=== PATIENT | female | born 1985 | race Hispanic/Latino ===

== ENCOUNTER 2022-02-17 19:59 | Emergency (ER) | payer OTHER ==
--- OUTSIDE RECORDS SUMMARY | 2022-02-17 20:04 | XMS REPORT | Continuity of Care Document ---
:1985 Author Organization [facility] t Address [address] [place] [address] Care Team Providers Name Role Phone MAREN BOYD Primary Care Physician Unavailable Maren Boyd Attending Clinician Unavailable VICKY ERICKSON Attending Clinician Unavailable GABE GUAJARDO Attending Clinician Unavailable PATTI LIU Attending Clinician Unavailable ROYAL BENNETT Attending Clinician Unavailable ADRIÁN HURLEY Attending Clinician Unavailable ADRIÁN HURLEY Attending Clinician Unavailable JESSE ARMAS Attending Clinician Unavailable 2, Adc Lab Attending Clinician Unavailable Jesse Armas DO Attending Clinician Nurse, Adc Pob Immunization Attending Clinician Unavailable Vicky Erickson PA-C Attending Clinician KARELY MCCALL Attending Clinician Unavailable AUDRA GILLIAM Attending Clinician Unavailable Lab, Adc Fam Pob I Attending Clinician Unavailable Audra Terry Attending Clinician 1, Adc Lab Attending Clinician Unavailable Doctor Unassigned, [place] Attending Clinician Unavailable Renetta Rojas MD Attending Clinician RENETTA ROJAS Attending Clinician Unavailable Maren Boyd Admitting Clinician Unavailable Payers Payer Name Policy Type Policy Number Effective Date Expiration Date Sandrita DAMON [id number] 2020 00:00:00 ALEX DAMON [id number] 2017 00:00:00 Problems Condition Condition Condition Status Onset Resolution Last Treating Co mments Source Name Details Category Date Date Treatment Clinician Date Obesity Obesity Disease Active Univers (BMI (BMI 7-14 ity of 30-39.9) 30-39.9) 00:00: [place] 00 Medical Branch 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 (AIS) situ [place]AIS[place] of uterine 00 Me dical cervix cervix Branch 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 5-17 [place] of of cervix [place] (JEFF III) (JEFF III) 00 [facility] Branch Status Status Disease Active Univers post LEEP post LEEP 2-12 ity of (loop (loop 00:00: [place] electrosur electrosur 00 Me dical gical gical Branch excision excision procedure) procedure) of cervix of cervix 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 exclude exclude 01/2017- high grade high grade colpo squamous squamous during intraepith intraepith elial elial - JEFF 3. 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 Univers female female 2-14 ity of 00:00: [place] 00 Medical Branch Allergies, Adverse Reactions, Alerts Allergy Allergy Status Severity Reaction(s) Onset Inactive Treating Comm ents Source Name Type Date Date Clinician Tramadol Propensi Active Itching 2016-02 Okay to Univ ers ty to 02-20 receive ity of adverse 00:00: codeine [place] reaction 00 and Medical s hydrocodo Branch ne TRAMADOL DRUG Active Anxiety 2016-02 Univers INGREDI 1-07 ity of 00:00: [place] 00 Medical Branch Social History Social Habit Start Date Stop Date Quantity Comments Source Exposure to Not sure University [facility]-CoV-2 [place] [facility] (event) Branch Alcohol intake 2019-09-17 2019-09-17 Current drinker of Un iversity of 00:00:00 00:00:00 alcohol (finding) [place] [facility] edical Branch History SDOH 2019-09-17 2019-09-17 99 University o f Alcohol Frequency 00:00:00 00:00:00 [place] [facility] edical Branch History SDOH 2019-09-17 2019-09-17 99 University o f Alcohol Std 00:00:00 00:00:00 [place] [facility] Drinks Branch History SDPA 2019-09-17 2019-09-17 99 University o f Alcohol Binge 00:00:00 00:00:00 [facility] al Branch Alcohol Comment 2019-09-17 2019-09-17 occasionally Univers ity of 00:00:00 00:00:00 [facility] Tobacco use and 2012-05-16 2012-05-16 Never used Universit y of exposure 00:00:00 00:00:00 [facility] Sex Ass[birth year] At [birth year] Universit y of 00:00:00 00:00:00 [facility] Smoking Status Start Date Stop Date Source Never smoker [facility] Medications Ordered Filled Start Stop Current Ordering Indication Dosage Frequency Signature Comments Components Source Medication Medication Date Date Medication? Clinician (SIG) Name Name phentermine 2021-0 2021- No 37.5mg Take 37.5 Univers 37.5 mg 1-18 01-18 mg by ity of tablet 09:29: 00:00 mouth [place] 13 :00 daily with Medical breakfast. Branch buPROPion 2019-02 Yes Univers XL 300 mg 2-07 ity of 24 hr 00:00: [place] tablet 00 Medical Branch buPROPion 2019-02 Yes Univers XL 300 mg 2-07 ity of 24 hr 00:00: [place] tablet 00 [facility] buPROPion 2019-02 Yes Univers XL 300 mg 2-07 ity of 24 hr 00:00: [place] tablet 00 Medical Branch levocetiriz Yes 5mg Take 5 mg U nivers ine (XYZAL) 6-24 by mouth ity of 5 mg tablet 11:12: every [place] 01 evening. Medical Branch levocetiriz 2020-0 Yes 5mg Take 5 mg U nivers ine (XYZAL) 6-24 by mouth ity of 5 mg tablet 11:12: every [place] evening. Medical Branch levocetiriz 2020-0 Yes 5mg Take 5 mg U nivers ine (XYZAL) 6-24 by mouth ity of 5 mg tablet 11:12: every [place] evening. Medical Branch montelukast 2017-0 2021- No 10mg Take 10 mg Univers (SINGULAIR) -12 03-03 by mouth ity of 10 mg 00:00: 00:00 daily. [place] tablet 00 :00 [facility] Immunizations Ordered Filled Immunization Date Status Comments [facility] e Immunization Name Name SARS-COV-2 COVID-19 2021-03-06 Completed Unive rsity of MODERNA BOOSTER 00:00:00 [facility] SARS-COV-2 COVID-19 2021-03-06 Completed Unive rsity of MODERNA BOOSTER 00:00:00 [facility] Influenza Virus 2020-11-18 Completed Universit y of Vaccine 00:00:00 [facility] Influenza Virus 2020-11-18 Completed Universit y of Vaccine 00:00:00 [facility] Influenza Virus 2020-11-18 Completed Universit y of Vaccine 00:00:00 [facility] SARS-COV-2 COVID-19 2020-06-12 Completed Unive rsity of MODERNA VACCINE 00:00:00 [facility] SARS-COV-2 COVID-19 2020-06-12 Completed Unive rsity of MODERNA VACCINE 00:00:00 [facility] SARS-COV-2 COVID-19 2020-06-12 Completed Unive rsity of MODERNA VACCINE 00:00:00 [facility] SARS-COV-2 COVID-19 2020-04-23 Completed Unive rsity of MODERNA VACCINE 00:00:00 [facility] SARS-COV-2 COVID-19 2020-04-23 Completed Unive rsity of MODERNA VACCINE 00:00:00 [facility] SARS-COV-2 COVID-19 2020-04-23 Completed Unive rsity of MODERNA VACCINE 00:00:00 [facility] Influenza Virus 2019-12-20 Completed Universit y of Vaccine 00:00:00 [facility] Influenza Virus 2019-12-20 Completed Universit y of Vaccine 00:00:00 [facility] Influenza Virus 2019-12-20 Completed Universit y of Vaccine 00:00:00 [facility] Influenza Virus 2016-12-21 Completed Universit y of Vaccine Quad IM 3+ 00:00:00 [facility] Influenza Virus 2016-12-21 Completed Universit y of Vaccine Quad IM 3+ 00:00:00 [facility] Influenza Virus 2016-12-21 Completed Universit y of Vaccine Quad IM 3+ 00:00:00 [facility] Rho (d) Immune 2012-04-02 Completed University of Globulin 00:00:00 [facility] Rho (d) Immune 2012-04-02 Completed University of Globulin 00:00:00 [facility] Rho (d) Immune 2012-04-02 Completed University of Globulin 00:00:00 [facility] Td 2011-12-01 Completed University of 00:00:00 [facility] Td 2011-12-01 Completed University of 00:00:00 [facility] Td 2011-12-01 Completed University of 00:00:00 [facility] Varicella 2011-08-11 Completed University of (varivax)(chicken 00:00:00 [place] [facility] edical pox) Branch Varicella 2011-08-11 Completed University of (varivax)(chicken 00:00:00 [facility] edical pox) Branch Varicella 2011-08-11 Completed University of (varivax)(chicken 00:00:00 [place] [facility] edical pox) [place] Rubella 2010-12-04 Completed University of 00:00:00 [facility] Rubella 2010-12-04 Completed University of 00:00:00 [facility] Rubella 2010-12-04 Completed University of 00:00:00 [facility] Vital Signs Vital Name Observation Time Observation Value Comments Source Systolic blood 2021-03-03 14:44:00 127 mm[Hg] Univer sity of pressure [facility] Diastolic blood 2021-03-03 14:44:00 82 mm[Hg] Unive rsity of pressure [facility] Heart rate 2021-03-03 14:44:00 62 /min Universi ty of [facility] Body temperature 2021-03-03 14:44:00 36.83 Tati [facility] Respiratory rate 2021-03-03 14:44:00 18 /min Univ [facility] Body height 2021-03-03 14:44:00 157.5 cm [facility] Body weight 2021-03-03 14:44:00 76.658 kg [facility] BMI 2021-03-03 14:44:00 30.91 kg/m2 [facility] Procedures Procedure Date / Time Performed Performing Clinician Sour e SARS-COV-2 COVID-19 2021-03-06 14:46:13 [facility] Un[facility]igned, [facility] V[facility]INE Name [facility] BOOSTER,0.25ML,IM (MODERNA) Encounters Start End Encounter Admission Attending Care Care Encounter Source Date/Time Date/Time Type Type Clinicians Facility Department ID 2020-06-24 Inpatient Jacinta, HCAPM HCAPM [id number] [facility] 07:11:05 Maren 09 [facility] 2022-03-03 2022-03-03 [facility] [id number] [facility] 08:30:00 08:30:00 VICKY edouard [facility] 2022-02-16 2022-02-16 Outpatient TITA GUAJARDO [id number] T[place] 10:15:00 10:15:00 GABE Hensonybol raj 2022-01-29 2022-01-29 Outpatient TITA GUAJARDO [id number] Tita 08:15:00 08:15:00 GABE Seybol raj 2022-01-26 2022-01-26 Outpatient TITA GUAJARDO [id number] Tita 08:00:00 08:00:00 GABE Seybol d 2022-01-18 2022-01-18 Outpatient TITA GUAJARDO [id number] Tita 14:00:00 14:00:00 GABE Seybol d 2022-01-15 2022-01-15 Outpatient TITA GUAJARDO [id number] Tita 09:45:00 09:45:00 GABE Seybol d 2022-01-12 2022-01-12 Outpatient TITA GUAJARDO [id number] Tita 15:30:00 15:30:00 GABE Seybol d 2021-12-31 2021-12-31 Outpatient CASANDRA, TITA GAYTAN [id number] Tita 11:45:00 11:45:00 GABE Seybol d 2021-12-30 2021-12-30 Outpatient CASANDRA, TITA GAYTAN [id number] Tita 08:45:00 08:45:00 GABE Seybol d 2021-12-10 2021-12-10 Outpatient CASANDRA, TITA GAYTAN [id number] Tita 10:30:00 10:30:00 GABE Seybol d 2021-11-04 2021-11-04 Outpatient INJ, TITA GAYTAN [id number] Tita 10:45:00 10:45:00 [place] Seybo ld 2021-11-02 2021-11-02 Outpatient INJ, TITA GAYTAN [id number] Tita 10:00:00 10:00:00 PATTI Seybo brigette 2021-10-29 2021-10-29 Outpatient BENNETT, TITA GAYTAN [id number] Tita 00:00:00 00:00:00 ROYAL Seybol d 2021-04-20 2021-04-20 Outpatient R ADRIÁN HURLEY [facility] [id number] Univers 09:00:00 09:00:00 ADRIÁN HURLEY [facility] 2021-03-06 2021-03-06 Outpatient R [facility] [id number] Univers 09:30:00 09:30:00 [facility] 2021-03-06 2021-03-06 Outpatient R PAWEL [facility] [id number] Univers 09:30:00 09:30:00 JESSE [facility] 2021-03-06 2021-03-06 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 2, Adc Lab [facility] [id number] Univers 09:30:00 09:30:00 Visit Jesse Armas 350.1.13 .10 [facility] [id number] Yulia newton PROFKARLIO [phone] [address] 2021-03-06 2021-03-06 Imm/Inj Nurse, Adc Pob Immunization [facility] [id number] Univers 08:40:00 08:43:41 Visit Jesse Armas 350.1.13 .10 [facility] [id number] [place] [facility] [phone] Hi dical [address] 2021-03-03 2021-03-03 Outpatient Abdirahman ERICKSON [facility] [id number] Univers 15:00:00 15:00:00 VICKY edouard [facility] 2021-03-03 2021-03-03 Outpatient Abdirahman ERICKSON [facility] [id number] Univers 08:30:00 09:31:04 VICKY [facility] 2021-03-03 2021-03-03 Outpatient [facility] [id number] Univers 09:30:00 09:30:00 [facility] 2021-03-03 2021-03-03 Office Dre [facility] [id number] Univers 08:30:00 09:00:00 Visit Vicky SOARES 350.1.13.10 it y of WOM[place]'S [id number] [place] [facility] [phone] [address] 2021-03-03 2021-03-03 Outpatient Abdirahman ERICKSON [facility] [id number] Univers 08:30:00 08:30:00 VICKY [facility] 2021-02-27 2021-02-27 Outpatient Abdirahman ARMAS [facility] [id number] Univers 16:40:00 16:40:00 JESSE edouard [facility] 2021-02-27 2021-02-27 Outpatient Abdirahman ARMAS [facility] [id number] Univers 16:40:00 16:40:00 JESSE [facility] 2020-09-16 2020-09-16 Outpatient Abdirahman ERICKSON [facility] [id number] Univers 10:00:00 10:00:00 VICKY [facility] 2020-06-12 2020-06-12 Outpatient Abdirahman MCCALL [facility] [id number] Univers 07:50:00 07:50:00 KARELY [facility] 2020-05-21 2020-05-21 Outpatient Abdirahman MCCALL [facility] [id number] Univers 09:40:00 09:40:00 KARELY [facility] 2020-04-23 2020-04-23 Outpatient [facility] [id number] Univers 08:00:00 08:00:00 ity [facility] 2020-04-23 2020-04-23 [facility] [id number] Univers 08:00:00 08:00:00 KARELY [facility] 2020-04-12 2020-04-12 Outpatient [facility] [id number] Univers 12:40:00 12:40:00 [facility] 2020-02-13 2020-02-13 Outpatient R TAWANA [facility] [id number] Univers 16:00:00 16:00:00 AUDRA [facility] 2020-02-13 2020-02-13 Laboratory Lab, [facility] [id number] 15:27:34 15:47:34 Only Fam Pob I Health 350.1.13.10 [place] 4.2.7.2.686 Professio [phone] [address] One 2020-02-13 2020-02-13 Laboratory Lab, [facility] Fam Pob I [facility] 1.2. 840.114 [id number] Univers 15:27:34 15:47:34 Only Audra [facility] 350.1.13.10 [facility] [id number] Dick as Professio [phone] Hi dical [address] Office Building One 2020-02-13 2020-02-13 Outpatient R [facility] [id number] Univers 11:40:00 11:40:00 [facility] 2019-09-17 2019-09-[id number] 10:35:58 11:50:13 Visit Vicky Serna 350.1.13.10 [place] 4.2.7.2.686 Professio [id number] [address] 2019-09-17 2019-09-17 Office Dre [facility] [id number] Univers 10:35:58 11:50:13 Visit Vicky Serna 350.1.13.10 i ty [place] 4.2.7.2.686 [place] Professio [phone] Hi dic[address] 2019-09-17 2019-09-17 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 1, Adc Lab [facility] 1.2.840.114 [id number] Univers 11:29:36 11:44:36 Visit Vicky Erickson 350.1.13.10 [place] 4.2.7.2.686 [place] [phone] [address] 2019-09-17 2019-09-17 Outpatient R DRE [facility] [id number] Univers 10:30:00 10:30:00 VICKY ity [facility] 2019-09-17 2019-09-17 Orders Doctor IZAIAH 1.2.840.114 [id number] Univers 00:00:00 00:00:00 Only Unassigned, GARCIA 350.1.13.10 ity of [place] [facility] 4.2.7.2.686 Dick as [id number] [address] 2019-08-08 2019-08-08 Office Renetta Rojas [facility] [id number] Univers 10:50:15 11:37:48 Visit Rickie Serna 350.1.13.10 i ty [place] 4[place]2.7.2.686 [place] Professio [phone] [address] 2019-08-08 2019-08-08 Outpatient R RENETTA ROJAS [facility] [id number] Univers 10:45:00 10:45:[address] [facility] 2019-08-01 2019-08-01 Telephone Dre [facility] 1.2.840.114 [id number] Univers 00:00:00 00:00:00 Vicky Serna 350.1.13.10 i ty [place] 4.2.7.2.686 [place] Professio [phone] Hi dical nal [address] Results Test Description Test Time Test Comments Results Result [facility] e Comments - US ABDOMEN LTD 2020-06-27 09:50:00 [facility] : 1985 Sex: F Name: DENVER TORRES [facility] : 1985 Age/S: 34 / F [id number] [place] Unit #: [id number] Loc: [place] [address] Phys: Maren Boyd DO Acct: [id number] Dis Date: Status: REG CLI PHONE #: [phone] Exam Date: 06/27/202010 FAX #: Reason: RT UP QUAD PAIN EXAMS: CPT: [id number] ABDOMEN LTD [id number] EXAM: - US ABDOMEN LTD HISTORY: RT UP QUAD PAIN S17 COMPARISON: None available time of interpretation. TECHNIQUE: Grayscale B-mode and color Doppler sonographic images of the right upper quadrant were obtained. FINDINGS: Liver: Right hepatic lobe length: 16 cm Parenchyma/Contour: Unremarkable. No focal hepatic lesion is seen sonographically. Main portal vein: Patent with normal (hepatopetal) flow. Biliary ducts: No intrahepatic biliary ductal dilation. Common duct measures 4 mm in diameter at the denise hepatis. Gallbladder: Unremarkable. No cholelithiasis. No gallbladder wall thickening or pericholecystic fluid. Pancreas: The pancreas is not well seen mostly obscured by bowel gas. Right Kidney: The right kidney has a normal sonographic appearance. No solid mass lesion is seen. No hydronephrosis is present. Renal cortical thickness and echogenicity is within normal limits. Length: 9.8 cm Other: No ascites in the visualized abdomen. IMPRESSION: 1. No sonographic evidence of acute process in the right upper quadrant. 2. No cholelithiasis, sonographic evidence of acute cholecystitis or biliary dilatation/obstruction . at 0950 Reported and signed by: Antonia Graham M.D. PAGE 1 Signed Report (CONTINUED) Name: [place] : 1985 Age/S: 34 / F [address] [place] Unit #: [id number] Loc: [place] [address] Phys: Maren Boyd DO Acct: [id number] Dis Date: Status: REG CLI PHONE #: [phone] Exam Date: 06/27/2020 0910 FAX #: Reason: RT UP QUAD PAIN EXAMS: CPT: [id number] US ABDOMEN LTD [id number] (Continued) CC: Maren Boyd DO Technologist: [facility] Bel[facility]an [facility] Date/Time: 06/27/2020 (0950) [email or web address] PAGE 2 Signed Report Name: DENVER TORRES [place] : 1985 Age/S: 34 / F [id number] [place] Unit #: [id number] Loc: [place] [address] Phys: Maren Boyd DO Acct: [id number] Dis Date: Status: REG CLI PHONE #: [phone] Exam Date: 06/27/2020 0910 FAX #: Reason: RT UP QUAD PAIN EXAMS: CPT: [id number] US ABDOMEN LTD [id number] (Continued) Orig Print D/T: S: 06/27/2020 (0953) Probe: PAGE 3 Signed Report
[2022-02-17 20:58] LABS: Urine Blood 1+ (Negative); Urine Glucose Negative (Negative); Urine Protein Negative (Negative); Urine Specific Gravity >=1.030 (1.005-1.030); Urine pH 5.5 (5.0-7.0)
[2022-02-17 21:03] LABS: Absolute Lymphocytes (CBC) 2.7 K/uL (0.7-4.9); Hematocrit 42.6 % (36.0-45.0); Lymphocytes % 25.5 % (15.3-44.8); MCV 88.7 fL (80-100); MPV 8.8 fL (7.6-11.3)
[2022-02-17 21:11] LABS: Urine Specific Gravity/Preg >1.030 (1.005-1.030)
[2022-02-17 21:14] LABS: Urine Bacteria <20 /HPF (<20); Urine Crystals Unidentified Few /HPF (None Seen); Urine Mucus Slight /HPF (None Seen); Urine RBC <5 /HPF (None Seen)
[2022-02-17 21:23] LABS: Albumin 3.9 g/dL (3.4-5.0); Bilirubin Total 0.3 mg/dL (0.2-1.0); Protein, Total 7.9 g/dL (6.4-8.2)
[2022-02-17 21:24] LABS: Potassium 3.6 mmol/L (3.5-5.1)
--- NOTE | 2022-02-17 21:39 | RAD REPORT ---
EXAM DESCRIPTION: US - Abdomen Exam Limited - 02/17/2022 9:32 pm CLINICAL HISTORY: Abdominal pain. COMPARISON: None. FINDINGS: The gallbladder wall is not thickened. A gallstone is not seen. The biliary tree is normal caliber. IMPRESSION: Unremarkable gallbladder ultrasound.
[2022-02-17] MEDS ORDERED: ONDANSETRON 4 MG/2 ML VIAL ONE (21:42)
[2022-02-17] MEDS ORDERED: NA CHLORIDE 0.9% 1,000 ML ONE (21:42)
[2022-02-17] MEDS ORDERED: KETOROLAC 30 MG/ML INJ ONE (21:43)
--- NOTE | 2022-02-17 22:05 | ER ---
Nurse's Notes [facility] Name: Unique Do Age: 36 yrs Sex: Female : 1985 Arrival Date: 02/17/2022 Time: 20:04 Bed 20 Private MD: Diagnosis: Upper abdominal pain, unspecified Presentation: 02/17 20:12 Chief complaint: Patient states: abdominal pain began today at 4pm. Coronavirus screen: kl Vaccine status: Patient reports receiving the 2nd dose of the covid vaccine. Ebola Screen: Patient negative for fever greater than or equal to 101.5 degrees Fahrenheit, and additional compatible Ebola Virus Disease symptoms. Initial Sepsis Screen: Does the patient meet any 2 criteria? No. Patient's initial sepsis screen is negative. Does the patient have a suspected source of infection? No. Patient's initial sepsis screen is negative. Risk Assessment: Do you want to hurt yourself or someone else? Patient reports no desire to harm self or others. 20:12 Method Of Arrival: Ambulatory 20:12 Acuity: CRISTIANO 3 20:41 Onset of symptoms was February 17, 2022 at 16:00. jj7 Triage Assessment: 20:14 General: Appears distressed, uncomfortable, Behavior is calm, cooperative. Pain: Complains of pain in epigastric area, right upper quadrant and left upper quadrant. GI: Reports anorexia, nausea, vomiting. Historical: - Allergies: 20:13 Tramadol HCl; kl - Home Meds: 20:13 Protonix Oral [Active]; Contrave oral [Active]; kl - PMHx: 20:15 gerd; kl - PSHx: 20:13 Appendectomy; kl 20:16 HYSTERECTOMY; kl - Immunization history:: Adult Immunizations up to date. - Social history:: Smoking status: Patient denies any tobacco usage or history of. Screenin:43 [facility] ED Fall Risk Assessment (Adult) History of falling in the last 3 months, jj7 including since admission No falls in past 3 months (0 pts) Confusion or Disorientation No (0 pts) Intoxicated or Sedated No (0 pts) Impaired Gait No (0 pts) Mobility Assist Device Used No (0 pt) Altered Elimination No (0 pt) Score/Fall Risk Level 0 - 2 = Low Risk. Abuse screen: Denies threats or abuse. Nutritional screening: No deficits noted. Tuberculosis screening: No symptoms or risk factors identified. Assessment: 20:43 General: Appears in no apparent distress. comfortable, Behavior is calm, cooperative, jj7 appropriate for age. GI: Abd is soft Abdomen is tender to palpation in right upper quadrant Reports upper abdominal pain, nausea. Vital Signs: 20:12 BP 140 / 102; Pulse 79; Resp 18; Temp 9.6(TE); Pulse Ox 100% on R/A; Weight 77.11 kg; Height 5 ft. 2 in. (157.48 cm); Pain 8/10; 21:11 Temp 99.6(TE); kl 22:00 BP 106 / 66; Pulse 56; Resp 18; Pulse Ox 100% ; jj7 22:34 BP 109 / 66; Pulse 59; Resp 18; Pulse Ox 100% ; Pain 1/10; jj7 20:12 Body Mass Index 31.09 (77.11 kg, 157.48 cm) ED Course: 20:04 Patient arrived in ED. jj6 20:13 Triage completed. 20:41 Sapna Garcia FNP-C is PHCP. kb 20:41 Vamshi Raza MD is Attending Physician. kb 20:41 Ryanne Howe RN is Primary Nurse. jj7 20:43 Patient has correct armband on for positive identification. Placed in gown. Bed in low jj7 position. Call light in reach. 20:43 Patient placed in an exam room, in a wheelchair. jj7 20:43 No provider procedures requiring assistance completed. Inserted saline lock: 20 gauge jj7 in right antecubital area, using aseptic technique. Blood collected. 20:52 CBC with Diff Sent. jj7 20:52 CMP Sent. jj7 20:52 Lipase Sent. jj7 20:52 Urine Microscopic Only Sent. jj7 21:34 US Abdomen Limited In Process Unspecified. EDMS 22:47 IV discontinued, intact, bleeding controlled, No redness/swelling at site. Pressure jj7 dressing applied. Administered Medications: 21:48 Drug: NS 0.9% 1000 ml Route: IV; Rate: 1000 ml; Site: right antecubital; jj7 22:35 Follow up: IV Status: Completed infusion jj7 21:49 Drug: Zofran (Ondansetron) 4 mg Route: IVP; Site: right antecubital; jj7 22:35 Follow up: Response: Nausea is decreased jj7 21:49 Drug: Ketorolac 15 mg Route: IVP; Site: right antecubital; jj7 22:36 Follow up: Response: Pain is decreased jj7 22:32 Drug: Pepcid (famotidine) 20 mg Route: IVP; Site: right antecubital; jj7 22:36 Follow up: Response: No adverse reaction jj7 Medication: 20:43 VIS not applicable for this client. jj7 Outcome: 22:04 Discharge ordered by MD. fontenot 22:47 Discharged to home ambulatory, with family. jj7 22:47 Condition: improved 22:47 Discharge instructions given to patient, Instructed on discharge instructions, medication usage, Demonstrated understanding of instructions, medications, Prescriptions given X 1. 22:48 Patient left the ED. jj7 Signatures: Dispatcher [employer] EDWY Sapna Garcia, CONSTRUCTION PROJECT ADMINISTRATOR-C CONSTRUCTION PROJECT ADMINISTRATOR-CkAntonia Domingo, RN RN Yvonne Pierson jj6 Raynne Howe RN RN jj7 Corrections: (The following items were deleted from the chart) 20:14 20:13 Allergies: No Known Allergies; rosario ponce 22:09 22:00 BP 119 / 78; Pulse 52bpm; Resp 18bpm; Pulse Ox 100%; Pain 4/10; jj7 jj7
--- NOTE | 2022-02-17 22:05 | EDPHYS ---
Physician Documentation [facility] Name: Unique Do Age: 36 yrs Sex: Female : 1985 Arrival Date: 02/17/2022 Time: 20:04 Bed 20 Private MD: ED Physician Vamshi Raza HPI: 02/17 22:31 This 36 yrs old Female presents to ER via Ambulatory with complaints of kb Abdominal Swelling, Abdominal Pain, Nausea/Vomiting. 22:31 The patient presents with abdominal pain in the upper abdomen. Onset: The kb symptoms/episode began/occurred 4 day(s) ago, and became persistent today. The symptoms do not radiate. Associated signs and symptoms: Pertinent positives: nausea and vomiting. The symptoms are described as constant. Modifying factors: The symptoms are alleviated by nothing, the symptoms are aggravated by nothing. Severity of pain: At its worst the pain was moderate in the emergency department the pain is unchanged. The patient has experienced similar episodes in the past. The patient has not recently seen a physician. Pt reports intermittent abd pain that started 4 days ago, but became persistent at 1600 today. Reports vomited x1. Denies fever, diarrhea. Has had this pain a few times in the past. Historical: - Allergies: 20:13 Tramadol HCl; kl - Home Meds: 20:13 Protonix Oral [Active]; Contrave oral [Active]; kl - PMHx: 20:15 gerd; kl - PSHx: 20:13 Appendectomy; kl 20:16 HYSTERECTOMY; kl - Immunization history:: Adult Immunizations up to date. - Social history:: Smoking status: Patient denies any tobacco usage or history of. ROS: 22:30 Constitutional: Negative for fever, chills, and weight loss. kb 22:30 Abdomen/GI: Positive for abdominal pain, nausea and vomiting. 22:30 All other systems are negative. Exam: 22:30 Constitutional: This is a well developed, well nourished patient who is awake, alert, kb and in no acute distress. Head/Face: Normocephalic, atraumatic. ENT: Moist Mucous membranes Cardiovascular: Regular rate and rhythm with a normal S1 and S2. No gallops, murmurs, or rubs. No pulse deficits. Respiratory: Respirations even and unlabored. No increased work of breathing. Talking in full sentences Skin: Warm, dry with normal turgor. Normal color. MS/ Extremity: Pulses equal, no cyanosis. Neurovascular intact. Full, normal range of motion. Neuro: Awake and alert, GCS 15, oriented to person, place, time, and situation. Moves all extremities. Normal gait. Psych: Awake, alert, with orientation to person, place and time. Behavior, mood, and affect are within normal limits. 22:30 Abdomen/GI: Inspection: abdomen appears normal, Bowel sounds: normal, Palpation: soft, in all quadrants, mild abdominal tenderness, in the epigastric area and left upper quadrant. Vital Signs: 20:12 BP 140 / 102; Pulse 79; Resp 18; Temp 9.6(TE); Pulse Ox 100% on R/A; Weight 77.11 kg; kl Height 5 ft. 2 in. (157.48 cm); Pain 8/10; 21:11 Temp 99.6(TE); kl 22:00 BP 106 / 66; Pulse 56; Resp 18; Pulse Ox 100% ; jj7 22:34 BP 109 / 66; Pulse 59; Resp 18; Pulse Ox 100% ; Pain 1/10; jj7 20:12 Body Mass Index 31.09 (77.11 kg, 157.48 cm) kl MDM: 20:41 Patient medically screened. kb 22:28 Data reviewed: vital signs, nurses notes. Data interpreted: Pulse oximetry: on room air kb is 100 %. Interpretation: normal. 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 ED course: I considered the following discharge prescriptions or medication management in the emergency department: considered prescription protonix, but pt will take OTC GERD medication; Diagnostic test considered but not performed: CT considered, but labs wnl, pain is intermittent and to upper abd. CT not indicated at this time.. 22:39 Differential diagnosis: cholecystitis, Cholelithiasis, gastritis, gastroesophageal kb reflux disease. 02/17 20:41 Order name: CBC with Diff; Complete Time: 21:27 kb 02/17 20:41 Order name: CMP; Complete Time: 21:27 kb 02/17 20:41 Order name: Lipase; Complete Time: 21:27 kb 02/17 20:41 Order name: Urine Microscopic Only; Complete Time: 21:27 kb 02/17 20:59 Order name: Urine Dipstick-Ancillary; Complete Time: 20:59 EDMS 02/17 21:03 Order name: Urine --Ancillary (enter results); Complete Time: 21:27 wm 02/17 20:41 Order name: IV Saline Lock; Complete Time: 20:52 kb 02/17 20:41 Order name: Labs collected and sent; Complete Time: 20:52 kb 02/17 20:41 Order name: Urine Dipstick-Ancillary (obtain specimen); Complete Time: 21:00 kb 02/17 21:05 Order name: US Abdomen Limited; Complete Time: 21:46 kb 02/17 20:41 Order name: Urine Test (obtain specimen); Complete Time: 21:00 kb Administered Medications: 21:48 Drug: NS 0.9% 1000 ml Route: IV; Rate: 1000 ml; Site: right antecubital; jj7 22:35 Follow up: IV Status: Completed infusion jj7 21:49 Drug: Zofran (Ondansetron) 4 mg Route: IVP; Site: right antecubital; jj7 22:35 Follow up: Response: Nausea is decreased jj7 21:49 Drug: Ketorolac 15 mg Route: IVP; Site: right antecubital; jj7 22:36 Follow up: Response: Pain is decreased jj7 22:32 Drug: Pepcid (famotidine) 20 mg Route: IVP; Site: right antecubital; jj7 22:36 Follow up: Response: No adverse reaction jj7 Disposition Summary: 02/17/22 22:04 Discharge Ordered Location: Home kb Condition: Stable kb Diagnosis - Upper abdominal pain, unspecified kb Followup: kb - With: Emergency Department - When: As needed - Reason: Worsening of condition Followup: kb - With: Private Physician - When: 2 - 3 days - Reason: Recheck today's complaints, Continuance of care, Re-evaluation by your physician Discharge Instructions: - Discharge Summary Sheet kb - Abdominal Pain, Adult, Mred-ic-Ajoo kb Forms: - Medication Reconciliation Form kb - Thank You Letter kb - Antibiotic Education kb - Prescription Opioid Use kb - Work release form jj7 Prescriptions: - dicyclomine 20 mg Oral Tablet - take 1 tablet by ORAL route 4 times per day As needed; 16 tablet; Refills: 0, kb Product Selection Permitted Signatures: Dispatcher [employer] EDSapna Saba, Antonia Zaragoza RN RN kl Johnson, Juwairiyah, RN RN jj7 Corrections: (The following items were deleted from the chart) 20:14 20:13 Allergies: No Known Allergies; rosario ponce
[2022-02-17] MEDS ORDERED: FAMOTIDINE 20 MG/2 ML VIAL IV ONE (22:31)
[2022-02-17 23:02] VITALS: O2SAT 100
[2022-02-17 23:03] VITALS: TEMP 99.6
[2022-02-17 23:05] VITALS: BP 109/66
== END 2022-02-17 22:48 | disposition home or self-care (01) ==
LOC: ER 19:59
DX: R10.11 Right upper quadrant pain (principal); R10.12 Left upper quadrant pain; Z88.5 Allergy status to narcotic agent
CPT/HCPCS: 96361; 85025; 36415; 81025; 83690; 80053; 76705; 96375; 96374; 99284; J7030; J2405; 81003; 81015

== ENCOUNTER 2022-08-19 20:20 | Emergency (ER) | payer OTHER ==
--- OUTSIDE RECORDS SUMMARY | 2022-08-19 20:29 | XMS REPORT | Continuity of Care Document ---
:1985 Author Organization [facility] t Address [address] [facility] [address] [place] [address] Care Team Providers Name Role Phone MAREN BOYD Primary Care Physician Unavailable Maren Boyd Attending Clinician Unavailable VICKY ERICKSON Attending Clinician Unavailable RENETTA ROJAS Attending Clinician Unavailable KALI MCCRARY Attending Clinician Unavailable 2, [facility] Attending Clinician Unavailable Vicky Erickson PA-C Attending Clinician Doctor Unassigned, [place] Attending Clinician Unavailable GABE GUAJARDO Attending Clinician Unavailable PATTI LIU Attending Clinician Unavailable ROYAL BENNETT Attending Clinician Unavailable ADRIÁN HURLEY Attending Clinician Unavailable ADRIÁN HURLEY Attending Clinician Unavailable JESSE ARMAS Attending Clinician Unavailable Jesse Armas DO Attending Clinician Nurse, Ad[facility] Pob Immunization Attending Clinician Unavailable KARELY MCCALL Attending Clinician Unavailable AUDRA GILLIAM Attending Clinician Unavailable Lab, Ad[facility] Fam Pob I Attending Clinician Unavailable Audra Terry Attending Clinician 1, [facility] Attending Clinician Unavailable Renetta Rojas MD Attending Clinician Maren Boyd Admitting Clinician Unavailable Payers Payer Name Policy Type Policy Number Effective Date Expiration Date S ource Problems Condition Condition Condition Status Onset Resolution [...] [place] (JEFF III) (JEFF III) 00 Medi sumaya Branch Status Status Disease Active Univers post LEEP post LEEP 2-12 ity of (loop (loop 00:00: [place] electrosur electrosur 00 Me dical gical gical Branch excision excision procedure) procedure) of cervix of cervix Status Status Disease Active Univers post LEEP [...] lesion Incomplet (ASC-H) (ASC-H) e ab with D&C3// 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 [...] hydrocodo Branch ne TRAMADOL DRUG Active Anxiety 2016- Univers INGREDI 02-20 ity of 00:00: [place] [address] Medical Branch Social History Social Habit Start Date Stop Date Quantity Comments Source Exposure to 2022-02-22 2022-03-04 [facility]59[facility]00 [place] [facility] (event) Branch Alcohol intake 2022-03-04 2022-03-04 Current drinker of Un iversity of 00:00:00 00:00:00 alcohol (finding) [facility] [place] [facility] edical Branch Tobacco use and 2022-03-04 2022-03-04 Smokeless tobacco Un iversity of exposure 00:00:00 00:00:00 non-user [place] [facility] History SDMO 2019-09-17 2019-09-17 99 University o f Alcohol Frequency 00:00:00 00:00:00 [facility] [place] [facility] edical Branch History SDOH 2019-09-17 2019-09-17 99 University o f Alcohol Std 00:00:00 00:00:00 [place] [facility] Drinks [facility] History SDMO 2019-09-17 2019-09-17 99 University o f Alcohol Binge 00:00:00 00:00:00 [place] [facility] Alcohol Comment 2019-09-17 2019-09-17 occasionally Univers ity of 00:00:00 00:00:00 [facility] Sex Ass[birth year] At [birth year] Universit y of 00:00:00 00:00:00 [facility] Smoking Status Start Date Stop Date Source Never smoked tobacco [facility] Medications Ordered Filled Start Stop Current Ordering Indication Dosage Frequency Signature Comments Components Source Medication Medication Date Date Medication? Clinician (SIG) Name Name pantoprazol 2021-02 Yes Univer s e 40 mg EC 2-01 ity of tablet 00:00: [place] [facility] pantoprazol 2021-02 Yes Univer s e 40 mg EC 2-01 ity of tablet 00:00: [place] [facility] pantoprazol 2021-02 Yes Univer s e 40 mg EC 2-01 ity of tablet 00:00: [place] [address] [facility] phentermine 0 2021- No 37.5mg Take 37.5 Univers 37.5 mg 1-18 01-18 mg by ity of tablet 09:29: 00:00 mouth [place] 13 :00 daily with Medical breakfast. Branch buPROPion 2019- Yes Univers XL 300 mg 2-07 ity of 24 hr 00:00: [place] tablet 00 Medical Branch buPROPion 2019- Yes Univers XL 300 mg 2-07 ity of 24 hr 00:00: [place] tablet 00 Medical Branch buPROPion 2019- Yes Univers XL 300 mg 2-07 ity of 24 hr 00:00: [place] tablet 00 Medical Branch buPROPion 2019- Yes Univers XL 300 mg 2-07 ity of 24 hr 00:00: [place] tablet 00 Medical Branch buPROPion 2019- Yes Univers XL 300 mg 2-07 ity of 24 hr 00:00: [place] tablet 00 Medical Branch buPROPion 2019- Yes Univers XL 300 mg 2-07 ity of 24 hr 00:00: [place] tablet 00 Medical Branch buPROPion 2019- Yes Univers XL 300 mg 2-07 ity of 24 hr 00:00: [place] tablet 00 Medical Branch levocetiriz 2020-0 Yes 5mg Take 5 mg U nivers ine (XYZAL) 6-24 by mouth ity of 5 mg tablet 11:12: every [place] evening. Medical Branch levocetiriz 2020-0 Yes 5mg Take 5 mg U nivers ine (XYZAL) 6-24 by mouth ity of 5 mg tablet 11:12: every [place] evening. Medical Branch levocetiriz 2020-0 Yes 5mg Take 5 mg U nivers ine (XYZAL) 6-24 by mouth ity of 5 mg tablet 11:12: every [place] evening. Medical Branch levocetiriz 2020-0 Yes 5mg Take 5 mg U nivers ine (XYZAL) 6-24 by mouth ity of 5 mg tablet 11:12: every [place] evening. Medical Branch levocetiriz 2020-0 Yes 5mg Take 5 mg U nivers ine (XYZAL) 6-24 by mouth ity of 5 mg tablet 11:12: every [place] evening. Medical Branch levocetiriz 2020-0 Yes 5mg Take 5 mg U nivers ine (XYZAL) 6-24 by mouth ity of 5 mg tablet 11:12: every [place] evening. Medical Branch levocetiriz 2020-0 Yes 5mg Take 5 mg U nivers ine (XYZAL) 6-24 by mouth ity of 5 mg tablet 11:12: every [place] 01 evening. Medical Branch montelukast 2018-0 2021- 10mg Take 10 mg Univers (SINGULAIR) [id number] by mouth ity of 10 mg 00:00: 00:00 daily. [place] tablet 00 :00 [facility] Immunizations Ordered Filled Immunization Date Status Comments [facility] e Immunization Name Name Influenza Virus 2021-11-02 Completed Universit y of Vaccine Quad IM 00:00:00 [place] [facility] ical Multi-dose 6+ MO Branch PPD (TB) 2021-11-02 Completed University 00:00:00 [facility] Influenza Virus 2021-11-02 Completed Universit y of Vaccine Quad IM 00:00:00 [place] [facility] ical Multi-dose 6+ MO Branch PPD (TB) 2021-11-02 Completed University 00:00:00 [facility] Influenza Virus 2021-11-02 Completed Universit y of Vaccine Quad IM 00:00:00 [place] [facility] ical Multi-dose 6+ MO Branch PPD (TB) 2021-11-02 Completed University 00:00:00 [facility] Influenza Virus 2021-11-02 Completed Universit y of Vaccine Quad IM 00:00:00 [place] [facility] ical Multi-dose 6+ MO Branch PPD (TB) 2021-11-02 Completed University 00:00:00 [facility] SARS-COV-2 COVID-19 2021-03-06 Completed Unive rsity of MODERNA BOOSTER 00:00:00 [facility] VACCINE Branch SARS-COV-2 COVID-19 2021-03-06 Completed Unive rsity of MODERNA BOOSTER 00:00:00 [facility] VACCINE Branch SARS-COV-2 COVID-19 2021-03-06 Completed Unive rsity of MODERNA 0.25ML 00:00:00 [place] Medi sumaya BOOSTER VACCINE Branch SARS-COV-2 COVID-19 2021-03-06 Completed Unive rsity of MODERNA 0.25ML 00:00:00 [place] Medi sumaya BOOSTER VACCINE Branch SARS-COV-2 COVID-19 2021-03-06 Completed Unive rsity of MODERNA 0.25ML 00:00:00 [place] Med[facility] sumaya BOOSTER VACCINE Branch SARS-COV-2 COVID-19 2021-03-06 Completed Unive rsity of MODERNA 0.25ML 00:00:00 [facility] VACCINE Branch Influenza Virus 2020-11-18 Completed Universit y of Vaccine 00:00:00 [facility] Influenza Virus 2020-11-18 Completed Universit y of Vaccine 00:00:00 [facility] Influenza Virus 2020-11-18 Completed Universit y of Vaccine 00:00:00 [facility] Influenza Virus 2020-11-18 Completed Universit y of Vaccine 00:00:00 [facility] Influenza Virus 2020-11-18 Completed Universit y of Vaccine 00:00:00 [facility] Influenza Virus 2020-11-18 Completed Universit y of Vaccine 00:00:00 [facility] Influenza Virus 2020-11-18 Completed Universit y of Vaccine 00:00:00 [facility] Lab Evidence Of 2020-08-28 Completed Universit y of Immunity - 00:00:00 [facility] Varicella Branch Lab Evidence Of 2020-08-28 Completed Universit y of Immunity - 00:00:00 [facility] Hepatitis B Branch Lab Evidence Of 2020-08-28 Completed Universit y of Immunity - 00:00:00 [facility] Varicella Branch Lab Evidence Of 2020-08-28 Completed Universit y of Immunity - 00:00:00 [facility] Hepatitis B Branch Lab Evidence Of 2020-08-28 Completed Universit y of Immunity - 00:00:00 [facility] Varicella Branch Lab Evidence Of 2020-08-28 Completed Universit y of Immunity - 00:00:00 [facility] Hepatitis B Branch Lab Evidence Of 2020-08-28 Completed Universit y of Immunity - 00:00:00 [facility] Varicella Branch Lab Evidence Of 2020-08-28 Completed Universit y of Immunity - 00:00:00 [facility] B Branch SARS-COV-2 COVID-19 2020-06-12 Completed Unive rsity of MODERNA VACCINE 00:00:00 [facility] SARS-COV-2 COVID-19 2020-06-12 Completed Unive rsity of MODERNA VACCINE 00:00:00 [facility] SARS-COV-2 COVID-19 2020-06-12 Completed Unive rsity of MODERNA VACCINE 00:00:00 [facility] SARS-COV-2 COVID-19 2020-06-12 Completed Unive rsity of MODERNA 12+ YRS 00:00:00 [place] [facility] ical VACCINE Branch SARS-COV-2 COVID-19 2020-06-12 Completed Unive rsity of MODERNA 12+ YRS 00:00:00 [place] [facility] ical VACCINE Branch SARS-COV-2 COVID-19 2020-06-12 Completed Unive rsity of MODERNA 12+ YRS 00:00:00 [facility] ical VACCINE Branch SARS-COV-2 COVID-19 2020-06-12 Completed Unive rsity of MODERNA 12+ YRS 00:00:00 [place] [facility] ical VACCINE Branch SARS-COV-2 COVID-19 2020-04-23 Completed Unive rsity of MODERNA VACCINE 00:00:00 [facility] ical Branch SARS-COV-2 COVID-19 2020-04-23 Completed Unive rsity of MODERNA VACCINE 00:00:00 [facility] ical Branch SARS-COV-2 COVID-19 2020-04-23 Completed Unive rsity of MODERNA VACCINE 00:00:00 [facility] ical Branch SARS-COV-2 COVID-19 2020-04-23 Completed Unive rsity of MODERNA 12+ YRS 00:00:00 [facility] ical VACCINE Branch SARS-COV-2 COVID-19 2020-04-23 Completed Unive rsity of MODERNA 12+ YRS 00:00:00 [facility] ical VACCINE Branch SARS-COV-2 COVID-19 2020-04-23 Completed Unive rsity of MODERNA 12+ YRS 00:00:00 [facility] ical VACCINE Branch SARS-COV-2 COVID-19 2020-04-23 Completed Unive rsity of MODERNA 12+ YRS 00:00:00 [facility] VACCINE Branch Influenza Virus 2019-12-20 Completed Universit y of Vaccine 00:00:00 [facility] Influenza Virus 2019-12-20 Completed Universit y of Vaccine 00:00:00 [facility] Influenza Virus 2019-12-20 Completed Universit y of Vaccine 00:00:00 [facility] Influenza Virus 2019-12-20 Completed Universit y of Vaccine 00:00:00 [facility] Influenza Virus 2019-12-20 Completed Universit y of Vaccine 00:00:00 [facility] Influenza Virus 2019-12-20 Completed Universit y of Vaccine 00:00:00 [facility] Influenza Virus 2019-12-20 Completed Universit y of Vaccine 00:00:00 [facility] HEP B, Adult Dosage 2018-12-28 Completed Unive rsity of 00:00:00 [facility] HEP B, Adult Dosage 2018-12-28 Completed Unive rsity of 00:00:00 [facility] HEP B, Adult Dosage 2018-12-28 Completed Unive rsity of 00:00:00 [facility] Branch HEP B, Adult Dosage 2018-12-28 Completed Unive rsity of 00:00:00 [facility] Branch HEP B, Adult Dosage 2018-07-21 Completed Unive rsity of 00:00:00 [facility] HEP B, Adult Dosage 2018-07-21 Completed Unive rsity of 00:00:00 [facility] HEP B, Adult Dosage 2018-07-21 Completed Unive rsity of 00:00:00 [facility] HEP B, Adult Dosage 2018-07-21 Completed Unive rsity of 00:00:00 [facility] HEP B, Adult Dosage 2018-06-20 Completed Unive rsity of 00:00:00 [facility] Branch HEP B, Adult Dosage 2018-06-20 Completed Unive rsity of 00:00:00 [facility] HEP B, Adult Dosage 2018-06-20 Completed Unive rsity of 00:00:00 [facility] HEP B, Adult Dosage 2018-06-20 Completed Unive rsity of 00:00:00 [facility] Influenza Virus 2016-12-21 Completed Universit y of Vaccine Quad IM 3+ 00:00:00 [facility] Influenza Virus 2016-12-21 Completed Universit y of Vaccine Quad IM 3+ 00:00:00 [facility] Influenza Virus 2016-12-21 Completed Universit y of Vaccine Quad IM 3+ 00:00:00 [facility] Influenza Virus 2016-12-21 Completed Universit y of Vaccine Quad IM 3+ 00:00:00 [facility] Influenza Virus 2016-12-21 Completed Universit y of Vaccine Quad IM 3+ 00:00:00 [facility] Influenza Virus 2016-12-21 Completed Universit y of Vaccine Quad IM 3+ 00:00:00 [facility] Influenza Virus 2016-12-21 Completed Universit y of Vaccine Quad IM 3+ 00:00:00 [facility] Rho (d) Immune 2012-04-02 Completed University of Globulin 00:00:00 [facility] Rho (d) Immune 2012-04-02 Completed University of Globulin 00:00:00 [facility] Rho (d) Immune 2012-04-02 Completed University of Globulin 00:00:00 [facility] Rho (d) Immune 2012-04-02 Completed University of Globulin 00:00:00 [facility] Rho (d) Immune 2012-04-02 Completed University of Globulin 00:00:00 [facility] Rho (d) Immune 2012-04-02 Completed University of Globulin 00:00:00 [facility] Rho (d) Immune 2012-04-02 Completed University of Globulin 00:00:00 [facility] Td 2011-12-01 Completed University of 00:00:00 [facility] Td 2011-12-01 Completed University of 00:00:00 [facility] Td 2011-12-01 Completed University of 00:00:00 [facility] TD, NOS 2011-12-01 Completed University of 00:00:00 [facility] TD, NOS 2011-12-01 Completed University of 00:00:00 [facility] TD, NOS 2011-12-01 Completed University of 00:00:00 [facility] TD, NOS 2011-12-01 Completed University of 00:00:00 [facility] Varicella 2011-08-11 Completed University of (varivax)(chicken 00:00:00 [place] M edical pox) Branch Varicella 2011-08-11 Completed University of (varivax)(chicken 00:00:00 [place] M edical pox) Branch Varicella 2011-08-11 Completed University of (varivax)(chicken 00:00:00 [place] M edical pox) Branch Varicella 2011-08-11 Completed University of (varivax)(chicken 00:00:00 [place] M edical pox) Branch Varicella 2011-08-11 Completed University of (varivax)(chicken 00:00:00 [place] M edical pox) Branch Varicella 2011-08-11 Completed University of (varivax)(chicken 00:00:00 [place] M edical pox) Branch Varicella 2011-08-11 Completed University of (varivax)(chicken 00:00:00 [place] M edical pox) Branch Rubella 2010-12-04 Completed University of 00:00:00 [facility] Rubella 2010-12-04 Completed University of 00:00:00 [place] [facility] Rubella 2010-12-04 Completed University of 00:00:00 [place] [facility] Rubella 2010-12-04 Completed University of 00:00:00 [place] [facility] Rubella 2010-12-04 Completed University of 00:00:00 [place] [facility] Rubella 2010-12-04 Completed University of 00:00:00 [place] [facility] Rubella 2010-12-04 Completed University of 00:00:00 [facility] Vital Signs Vital Name Observation Time Observation Value Comments Source Systolic blood 2022-03-04 20:04:00 126 mm[Hg] Univer sity of pressure [facility] Branch Diastolic blood 2022-03-04 20:04:00 79 mm[Hg] Unive rsity of pressure [facility] Branch Heart rate 2022-03-04 20:04:00 66 /min Universi ty of [facility] Body temperature 2022-03-04 20:04:00 36.83 Tati Univ ersity of [facility] Branch Respiratory rate 2022-03-04 20:04:00 18 /min Univ ersity of [place] [facility] Body height 2022-03-04 20:04:00 157.5 cm Universi ty of [place] [facility] Body weight 2022-03-04 20:04:00 79.379 kg Universi ty of [place] [facility] BMI 2022-03-04 20:04:00 32.01 kg/m2 Universi ty of [place] [facility] Systolic blood 2021-03-03 14:44:00 127 mm[Hg] Univer sity of pressure [facility] Branch Diastolic blood 2021-03-03 14:44:00 82 mm[Hg] Unive rsity of pressure [place] [facility] Heart rate 2021-03-03 14:44:00 62 /min Universi ty of [place] [facility] Body temperature 2021-03-03 14:44:00 36.83 Tati Univ ersity of [place] [facility] Respiratory rate 2021-03-03 14:44:00 18 /min Univ ersity of [place] [facility] Body height 2021-03-03 14:44:00 157.5 cm Universi ty of [place] [facility] Body weight 2021-03-03 14:44:00 76.658 kg Universi ty of [place] [facility] BMI 2021-03-03 14:44:00 30.91 kg/m2 Universi ty of [place] [facility] Procedures Procedure Date / Time Performed Performing Clinician Bolivar e ASSIGNMENT OF BENEFITS 2022-03-04 20:00:18 Doctor Unassigned, No [facility] SARS-COV-2 COVID-19 2021-03-06 14:46:13 Doctor Unassigned, No [facility] [place] VACCINE [facility] BOOSTER,0.25ML,IM (MODERNA) Encounters Start End Encounter Admission Attending Care Care Encounter Source Date/Time Date/Time Type Type Clinicians Facility Department ID 2020-06-24 Inpatient Jacinta HCAPM HCAPM [id number] [facility] 07:11:05 Krishali 09 [facility] 2022-07-28 2022-07-28 Outpatient KALI MCCRARY MHSE MHSE [id number] MH 06:48:00 23:59:00 [facility] 2022-03-04 2022-03-04 Jail Guard 2, Adc Lab [facility] [id number] Univers 14:45:00 15:00:00 Visit Vicky Erickson [id number] ity [facility] [id number] [phone] Wi dical NAL [address] [facility] 2022-03-04 2022-03-04 Outpatient R DRE [facility] [id number] [facility] 14:00:00 14:42:[facility] 2022-03-04 2022-03-04 Office Dre [facility] [id number] Univers 14:00:00 14:42:40 Visit Vicky MONSON [id number] i ty [facility] [id number] [phone] Wi dical NAL 134 [facility] 2022-03-04 2022-03-04 Orders Doctor BLISS [id number] Univers 00:00:00 00:00:00 Only Unassigned, GARCIA [id number] ity of [place] [facility] [id number] Dick as [phone] [address] 2022-03-03 2022-03-03 Outpatient R VANRYNE, [facility] [id number] Univers 08:30:00 08:30:00 VICKY edouard [facility] 2022-03-02 2022-03-02 Outpatient CASANDRA, TITA GAYTAN [id number] [place]ita 08:30:00 08:30:00 GABE Seybol d 2022-02-24 2022-02-24 Outpatient CASANDRA, TITA GAYTAN [id number] [place] 10:00:00 10:00:00 GABE Seybol d 2022-02-19 2022-02-19 Outpatient CASANDRA, TITA GAYTAN [id number] [place] 15:00:00 15:00:00 GABE Seybol d 2022-02-16 2022-02-16 Outpatient CASANDRA, TITA GAYTAN [id number] [place] 10:15:00 10:15:00 GABE Seybol d 2022-01-29 2022-01-29 Outpatient CASANDRA, TITA GAYTAN [id number] [place]ita 08:15:00 08:15:00 GABE Seybol d 2022-01-26 2022-01-26 Outpatient CASANDRA, TITA GAYTAN [id number] [place]ita 08:00:00 08:00:00 GABE Seybol d 2022-01-18 2022-01-18 Outpatient CASANDRA, TITA GAYTAN [id number] Tita 14:00:00 14:00:00 GABE Seybol d 2022-01-15 2022-01-15 Outpatient CASANDRA, TITA GAYTAN [id number] Tita 09:45:00 09:45:00 GABE Seybol d 2022-01-12 2022-01-12 Outpatient CASANDRA, TITA GAYTAN [id number] Tita 15:30:00 15:30:00 GABE Seybol d 2021-12-31 2021-12-31 Outpatient CASANDRA, TITA GAYTAN [id number] Tita 11:45:00 11:45:00 GABE Seybol d 2021-12-30 2021-12-30 Outpatient CASANDRA, TITA GAYTAN [id number] Tita 08:45:00 08:45:00 GABE Seybol d 2021-12-10 2021-12-10 Outpatient CASANDRA, TITA GAYTAN [id number] [place]ita 10:30:00 10:30:00 GABE Seybol d 2021-11-04 2021-11-04 Outpatient INJ, TITA GAYTAN [id number] Tita 10:45:00 10:45:00 DAVIDTRACY Seybo ld 2021-11-02 2021-11-02 Outpatient INJ, TITA GAYTAN [id number] [place]ita 10:00:00 10:00:00 DAVIDTRACY Hensonybo ld 2021-10-29 2021-10-29 Outpatient BENNETT, TITA GAYTAN [id number] Tita 00:00:00 00:00:00 ROYAL Hensonybol d 2021-04-20 2021-04-20 Outpatient R ADRIÁN HURLEY [facility] [id number] Univers 09:00:00 09:00:00 ADRIÁN HURLEY [facility] 2021-03-06 2021-03-06 Outpatient R [facility] [id number] Univers 09:30:00 09:30:00 ity [facility] 2021-03-06 2021-03-06 Outpatient R PAWEL [facility] [id number] Univers 09:30:00 09:30:00 JESSE [facility] 2021-03-06 2021-03-06 Jail Guard 2, [facility] Lab [facility] [id number] Univers 09:30:00 09:30:00 Visit Jesse Armas [id number] ity of [id number] [phone] Me dical NAL 353 [facility] 2021-03-06 2021-03-06 Imm/Inj Nurse, [facility] Pob Immunization [facility] [id number] Univers 08:40:00 08:43:41 Visit Jesse Armas [id number] ity of [place] [id number] [phone] Me dical NAL 421 [facility] 2021-03-03 2021-03-03 Outpatient R SALTYAN, [facility] [id number] Univers 15:00:00 15:00:00 VICKY christina [facility] 2021-03-03 2021-03-03 Outpatient Abdirahman ERICKSON [facility] [id number] Univers 08:30:00 09:31:04 VICKY [facility] 2021-03-03 2021-03-03 Outpatient [facility] [id number] Univers 09:30:00 09:30:00 [facility] 2021-03-03 2021-03-03 Office Leoncioryne [facility] [id number] Univers 08:30:00 09:00:00 Visit Vicky SOARES [id number] [facility]OMENS [id number] [facility] [phone] [address] 2021-03-03 2021-03-03 Outpatient Abdirahman ERICKSON [facility] [id number] Univers 08:30:00 08:30:00 [facility] 2021-02-27 2021-02-27 [facility] [id number] Univers 16:40:00 [facility]40[facility] 2021-02-27 [facility] [id number] Univers 16:40:00 [facility]:40:[facility] 2020-09-16 2020-09-16 Outpatient Abdirahman ERICKSON [facility] [id number] Univers 10:00:00 10:00:00 [facility] 2020-06-12 2020-06-12 Outpatient Abdirahman MCCALL [facility] [id number] Univers 07:50:00 07:50:00 [facility] [place] [facility] 2020-05-21 2020-05-21 [facility] [id number] Univers 09:40:00 09:40:00 [facility] [place] [facility] 2020-04-23 2020-04-23 Outpatient [facility] [id number] Univers 08:00:00 08:00:00 ity [facility] 2020-04-23 2020-04-23 Outpatient R STEFANY, [facility] [id number] Univers 08:00:00 08:00:00 KARELY [facility] 2020-04-12 2020-04-12 Outpatient [facility] [id number] Univers 12:40:00 12:40:00 [facility] 2020-02-13 2020-02-13 [facility] [id number] Univers 16:00:00 16:00:00 AUDRA [facility] [facility] 2020-02-13 2020-02-13 Laboratory Lab, [facility] [id number] 15:27:34 15:47:34 Only Fam Pob I Health [id number] [place] [id number] Professio [phone] [address] 2020-02-13 2020-02-13 Laboratory Lab, [facility] Fam Pob I [facility] 1.. 840.114 [id number] Univers 15:27:34 15:47:34 Only Audra Gilliam A Health [id number] ity of [place] [id number] Dick as Professio [phone] Wi dic[address] 2020-02-13 2020-02-13 Outpatient R [facility] [id number] Univers 11:40:00 11:40:00 [facility] 2019-09-17 2019-09-[address] [facility] [id number] 10:35:58 11:50:13 Visit Vicky Daphne [id number] [place] [id number] Professio [phone] [address] 2019-09-17 2019-09-[address] [facility] [id number] Univers 10:35:58 11:50:13 Visit Vicky Daphne 350.1.13.10 i [place] of [place].2.[place] [phone] Wi dical [address] 2019-09-17 2019-09-17 Jail Guard 1, Adc Lab [facility] 1.2.840.114 [id number] Univers 11:29:36 11:44:36 Visit Vicky Erickson 350.1.13.10 ity of [place]7.2.686 [place] [phone] [address] 2019-09-17 2019-09-17 Outpatient R DRE [facility] [id number] Univers 10:30:00 10:30:00 VICKY ity [facility] 2019-09-17 2019-09-17 Orders Doctor IZAIAH 1.2.840.114 [id number] Univers 00:00:00 00:00:00 Only Unassigned, GARCIA 350.1.13.10 ity of [place] [facility] 4.2.7.2.686 [place] as [phone] [address] 2019-08-08 2019-08-08 Office Renetta Rojas [facility] [id number] Univers 10:50:15 11:37:48 Visit Rickie Monson 350.1.13.10 i [place].2.[place] [phone] [address] 2019-08-08 2019-08-08 Outpatient R RENETTA ROJAS [facility] [id number] Univers 10:45:00 10:45:00 ity of [facility] 2019-08-01 2019-08-01 Telephone Dre [facility] 1.2.840.114 [id number] Univers 00:00:00 00:00:00 Vicky Monson 350.1.13.10 i [place] [phone] [address] Results Test Description Test Time Test Comments Results Result [facility] e Comments - US ABDOMEN LTD 2020-06-27 09:50:00 [facility] 1985 Sex: F Name: DEN[facility] : 1985 Age/S: 34 / F [address] [place] Unit #: [id number] Loc: [place] [address] Phys: Maren Boyd DO Acct: [id number] Dis Date: Status: REG CLI PHONE #: [phone] Exam Date: 06/27/2020 0910 FAX #: Reason: RT UP QUAD PAIN EXAMS: CPT: [id number] US ABDOMEN LTD [id number] EXAM: - US ABDOMEN LTD HISTORY: RT [...] PAGE 1 Signed Report (CONTINUED) Name: DENVER TORRES : 1985 Age/S: 34 / F [address] [place] Unit #: [id number] Loc: [place] [address] Phys: Maren Boyd DO Acct: [id number] Dis Date: Status: REG CLI PHONE #: [phone] Exam Date: 06/27/2020 0910 FAX #: Reason: RT UP QUAD PAIN EXAMS: CPT: [id number] US ABDOMEN LTD [id number] (Continued) CC: Maern Boyd DO Technologist: Tia Beltran Trnscb Date/Time: 06/27/2020 (0950) [email or web address] PAGE 2 Signed Report Name: DENVER TORRES : 1985 Age/S: 34 / F [address] [place] Unit #: [id number] Loc: [place] [address] Phys: Maren Boyd DO Acct: [id number] Dis Date: Status: REG CLI PHONE #: [phone] Exam Date: 06/27/2020 0910 FAX #: Reason: RT UP QUAD PAIN EXAMS: CPT: [id number] US ABDOMEN LTD 52652 (Continued) Orig Print D/T: S: 06/27/2020 (0953) Probe: PAGE 3 Signed Report
[2022-08-19] MEDS ORDERED: ACETAMINOPHEN 325 MG TABLET ONE (21:54)
[2022-08-19] MEDS ORDERED: IBUPROFEN 400 MG TAB ONE (21:54)
--- NOTE | 2022-08-19 21:57 | RAD REPORT ---
EXAM DESCRIPTION: KATHI AGOSTO - 08/19/2022 9:48 pm CLINICAL HISTORY: injury COMPARISON: No comparisons TECHNIQUE: Left hand, 3 views. FINDINGS: No fracture is identified. There is no dislocation or periosteal reaction noted. Joint alignment is maintained. No foreign body or other soft tissue abnormality. IMPRESSION: Negative left hand examination.
--- NOTE | 2022-08-19 22:54 | ER ---
Nurse's Notes [facility] Name: Unique Do Age: 36 yrs Sex: Female : 1985 Arrival Date: 08/19/2022 Time: 20:20 Bed DIS1 Private MD: Diagnosis: Contusion of finger without damage to nail-left fourth Presentation: 08/19 20:53 Chief complaint: Patient states: caught my left ring finger in my gate bending it lg3 backwards in a "V" shape backwards. 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 now the swelling is increasing and becoming discolored. Coronavirus screen: Client denies travel out of the [place] in the last 14 days. At this time, the client does not indicate any symptoms associated with coronavirus-19. Ebola Screen: No symptoms or risks identified at this time. Initial Sepsis Screen: Does the patient meet any 2 criteria? No. Patient's initial sepsis screen is negative. Does the patient have a suspected source of infection? No. Patient's initial sepsis screen is negative. Risk Assessment: Do you want to hurt yourself or someone else? Patient reports no desire to harm self or others. Onset of symptoms was August 19, 2022. 20:53 Method Of Arrival: Ambulatory lg3 20:53 Acuity: CRISTIANO 4 lg3 Triage Assessment: 20:56 General: Appears in no apparent distress. comfortable, Behavior is calm, cooperative. lg3 Pain: Complains of pain in left ring finger. EENT: No deficits noted. No signs and/or symptoms were reported regarding the EENT system. Neuro: No deficits noted. Kang Agitation-Sedation Scale (RASS): 0 - Alert and Calm Level of Consciousness is awake, alert, obeys commands, Oriented to person, place, time, situation. Cardiovascular: No deficits noted. Denies chest pain, shortness of breath, Capillary refill < 3 seconds Clubbing of nail beds is absent JVD is absent Patient's skin is warm and dry. Respiratory: No deficits noted. Airway is patent Respiratory effort is even, unlabored, Respiratory pattern is regular, symmetrical. GI: No deficits noted. No signs and/or symptoms were reported involving the gastrointestinal system. : No deficits noted. No signs and/or symptoms were reported regarding the genitourinary system. Derm: Skin is intact, is healthy with good turgor, Skin is dry, Skin is normal, Skin temperature is warm Bruising that is dark purple, on left ring finger. Musculoskeletal: Circulation, motion, and sensation intact. Range of motion: limited in DIP of left ring finger Swelling present in left ring finger Reports pain in left ring finger. 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 - Social history:: Smoking status: Patient denies any tobacco usage or history of. Patient uses alcohol, occasionally. Screenin:57 [facility] ED Fall Risk Assessment (Adult) History of falling in the last 3 months, lg3 including since admission No falls in past 3 months (0 pts). Abuse screen: Denies threats or abuse. Denies injuries from another. Nutritional screening: No deficits noted. Tuberculosis screening: No symptoms or risk factors identified. Assessment: 21:57 General: see triage assessment . lg3 23:00 Reassessment: Patient appears in no apparent distress at this time. No changes from lg3 previously documented assessment. Patient and/or family updated on plan of care and expected duration. Pain level reassessed. Patient is alert, oriented x 3, equal unlabored respirations, skin warm/dry/pink. Vital Signs: 20:53 BP 146 / 96; Pulse 63; Resp 17 S; Temp 98.4(O); Pulse Ox 100% on R/A; Weight 77.11 kg lg3 (R); Height 5 ft. 2 in. (R); Pain 5/10; 20:53 Body Mass Index 31.09 (77.11 kg, 157.48 cm) lg3 20:53 Pain Scale: Adult lg3 ED Course: 20:22 Patient arrived in ED. [email or web address] 20:27 Dionicio Fontaine PA is PHCP. cp 20:27 Jonny Diallo MD is Attending Physician. cp 20:56 Triage completed. lg3 20:56 Arm band placed on right wrist. lg3 21:50 XRAY Hand LEFT 3 View In Process Unspecified. EDMS 21:57 Patient has correct armband on for positive identification. lg3 23:15 No provider procedures requiring assistance completed. Aluminum finger splint applied pf1 to left ring finger. 23:18 Patient did not have IV access during this emergency room visit. pf1 Administered Medications: 21:23 CANCELLED (Physician Discretion): Ibuprofen PO 800 mg PO once cp 22:01 Drug: Acetaminophen PO 650 mg Route: PO; lg3 23:01 Follow up: Response: No adverse reaction lg3 22:01 Drug: Ibuprofen PO 400 mg Route: PO; lg3 23:00 Follow up: Response: No adverse reaction; Marked relief of symptoms; Pain is decreased pf1 23:01 Follow up: Response: No adverse reaction lg3 Medication: 23:22 VIS not applicable for this client. pf1 Outcome: 22:53 Discharge ordered by MD. cp 23:21 Discharged to home ambulatory. pf1 23:21 Condition: improved 23:21 Discharge instructions given to patient, Instructed on discharge instructions, follow up and referral plans. Demonstrated understanding of instructions, follow-up care, medications, Prescriptions given X 1. 23:22 Patient left the ED. pf1 Signatures: Dispatcher [employer] EDMS Dionicio Fontaine PA PA cp Gibson, Lacie, RN RN lg3 Yvonne Buenrostroj6 Bee Haider, RN RN pf1
--- NOTE | 2022-08-19 22:54 | EDPHYS ---
Physician Documentation [facility] Name: Unique Do Age: 36 yrs Sex: Female : 1985 Arrival Date: 08/19/2022 Time: 20:20 Bed DIS1 Private MD: ED Physician Jonny Diallo HPI: 08/19 21:00 This 36 yrs old Female presents to ER via Ambulatory with complaints of Hand cp Injury. 21:00 The patient or guardian reports injury, pain. The complaints affect the left ring cp finger. Context: while closing gate at home, gate swung back and struck end of left fourth finger. Onset: The symptoms/episode began/occurred today. Associated signs and symptoms: The patient has no apparent associated signs or symptoms. 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 - Social history:: Smoking status: Patient denies any tobacco usage or history of. Patient uses alcohol, occasionally. ROS: 21:05 MS/extremity: Positive for ecchymosis, pain, swelling, tenderness, of the left ring cp finger. 21:05 Constitutional: Negative for body aches, chills, fever, poor PO intake. cp 21:05 All other systems are negative. Exam: 21:10 Constitutional: The patient appears in no acute distress, alert, awake, non-toxic, well cp developed, well nourished. 21:10 Head/Face: Normocephalic, atraumatic. cp 21:10 Chest/axilla: Inspection: normal. 21:10 Cardiovascular: Rate: normal. 21:10 Respiratory: the patient does not display signs of respiratory distress, Respirations: normal, no use of accessory muscles, no retractions. 21:10 Musculoskeletal/extremity: Extremities: grossly normal except: noted in the distal phalanx of left fourth finger: ecchymosis, pain, swelling, tenderness, There is no evidence of decreased ROM, deformity, nail intact, Perfusion: the extremity is normally perfused throughout, the left ring finger Sensation intact. Vital Signs: 20:53 BP 146 / 96; Pulse 63; Resp 17 S; Temp 98.4(O); Pulse Ox 100% on R/A; Weight 77.11 kg lg3 (R); Height 5 ft. 2 in. (R); Pain 5/10; 20:53 Body Mass Index 31.09 (77.11 kg, 157.48 cm) lg3 20:53 Pain Scale: Adult lg3 Procedures: 23:00 Splinting: Splint applied to left ring finger using finger splint, applied by nurse. cp Examined by me, post splint application: neurovascular intact, Patient tolerated well. MDM: 21:03 Patient medically screened. cp 22:00 Differential diagnosis: dislocation, closed fracture, contusion, tendon injury. cp 22:53 Data reviewed: vital signs, nurses notes, radiologic studies, plain films, and as a cp result, I will discharge patient. 22:53 I considered the following discharge prescriptions or medication management in the emergency department Medications were administered in the Emergency Department. See MAR. Independent interpretation of the following test(s) in the Emergency Department X-Ray: My interpretation is images of left hand negative for fracture. Counseling: I had a detailed discussion with the patient and/or guardian regarding: the historical points, exam findings, and any diagnostic results supporting the discharge/admit diagnosis, to return to the emergency department if symptoms worsen or persist or if there are any questions or concerns that arise at home. 08/19 20:43 Order name: XRAY Hand LEFT 3 View; Complete Time: 22:51 cp 08/19 22:51 Interpretation: Report reviewed. 08/19 22:52 Order name: Splint - Finger; Complete Time: 23:18 cp Administered Medications: 21:23 CANCELLED (Physician Discretion): Ibuprofen PO 800 mg PO once cp 22:01 Drug: Acetaminophen PO 650 mg Route: PO; lg3 23:01 Follow up: Response: No adverse reaction lg3 22:01 Drug: Ibuprofen PO 400 mg Route: PO; lg3 23:00 Follow up: Response: No adverse reaction; Marked relief of symptoms; Pain is decreased pf1 23:01 Follow up: Response: No adverse reaction lg3 Disposition Summary: 08/19/22 22:53 Discharge Ordered Location: Home cp Problem: new cp Symptoms: have improved cp Condition: Stable cp Diagnosis - Contusion of finger without damage to nail - left fourth(08/19/22 22:54) cp Followup: cp - With: Private Physician - When: 2 - 3 days - Reason: Worsening of condition Discharge Instructions: - Discharge Summary Sheet cp - Contusion cp Forms: - Medication Reconciliation Form cp - Thank You Letter cp - Antibiotic Education cp - Prescription Opioid Use cp - [email or web address] cp Prescriptions: - Ibuprofen 800 mg Oral Tablet - take 1 tablet by ORAL route every 8 hours As needed take with food; 30 tablet; cp Refills: 0, Product Selection Permitted Addendum: 08/24/2022 19:58 Co-signature as Attending Physician, Jonny Diallo MD I agree with the assessment s p4 and plan of care. I reviewed the patient's care provided by the Advanced Practice Provider and agree with the diagnosis and treatment plan. Signatures: Dispatcher [employer] EDMS Dionicio Fontaine PA PA cp Aleisha Hernandez, RN RN lg3 Jonny Diallo MD MD sp4 Bee Haider RN pf1 Corrections: (The following items were deleted from the chart) 08/19 21:23 20:43 Ibuprofen PO 800 mg PO once ordered. cp cp 22:54 22:53 Contusion of finger without damage to nail cp cp
[2022-08-20 00:53] VITALS: BP 146/96; TEMP 98.4; O2SAT 100
== END 2022-08-19 23:22 | disposition home or self-care (01) ==
LOC: ER 20:20
DX: S60.042A Contusion of left ring finger without damage to nail, initial encounter (principal); Z88.5 Allergy status to narcotic agent
CPT/HCPCS: 99284